=== PATIENT | male | born 1945 | race Caucasian/White ===

== ENCOUNTER 2019-03-26 04:40 | Emergency (ER) | payer OTHER ==
[~2019-03-26] VITALS: Ht 180.3 cm; Wt 63.5 kg
[2019-03-26] MEDS ORDERED: ELIQUIS5 MG PO (05:09)
[2019-03-26] MEDS ORDERED: PROZAC20 M1 PO (05:11)
[2019-03-26] MEDS ORDERED: CRESTOR20 MG PO (05:12)
[2019-03-26] MEDS ORDERED: VITAMIN D5000 UNIT PO (05:13)
[2019-03-26] MEDS ORDERED: TOPROL XL25 MG PO (05:19)
[2019-03-26 05:26] LABS: HEMATOCRIT 33.8 % (42.0-52.0); HEMOGLOBIN 10.7 gm/dL (14.0-18.0); MCH 28.7 pg (26.0-34.0); MCHC 31.6 g/dL (28.0-37.0); MCV 90.7 fL (80.0-100.0); PLATELET COUNT 209 thou/uL (150-400); RBC 3.73 mil/uL (4.50-6.00); RDW 16.7 % (10.5-14.5); WBC 3.7 thou/uL (4.0-11.0)
[2019-03-26 05:35] LABS: ANION GAP 7 mmol/L (7-16); BUN 23 mg/dL (7-18); CHLORIDE 107 mmol/L (98-107); CO2 29 mmol/L (21-32); CREATININE 1.3 mg/dL (0.7-1.3); GLUCOSE 105 mg/dL (74-106); POTASSIUM 4.3 mmol/L (3.5-5.1); SODIUM 143 mmol/L (136-145)
[2019-03-26 05:44] LABS: TROPONIN-I <0.06 ng/mL (<0.06)
[2019-03-26 08:41] LABS: PLATELET ESTIMATE NORMAL
--- NOTE | 2019-03-26 09:02 | EKG ---
[place] [address] [facility] [place] [place] [address] ELECTROCARDIOGRAM REPORT Name: SHAYNACHRISTIANOMINNIEHANY L Room #: [facility]#: [id number] Admission: 03/26/19 Attend Phys: Discharge: Date of : 47 Report #: [id number] THIS REPORT FOR: //name// [facility] ED Test Date: 2019-03-26 Test Time: 04:45:18 Pat Name: HANY RECINOS Department: Room: Gender: M Intake Nurse: SARAH : 1945 Requested By: Juan A Carrillo Order Number: [id number] MD: Ethan Hillman Measurements Intervals [place] Rate: 112 P: [place]: QRS: 80 QRSD: 79 T: 59 QT: 384 QTc: 525 Interpretive Statements Atrial flutter Anteroseptal infarct, old Borderline ST depression, diffuse leads Prolonged QT interval No previous ECG available for comparison Electronically Signed On 03-26-2019 9:02:49 CDT by Ethan Hillman [email or web address] <ELECTRONICALLY SIGNED> By: Ethan Hillman MD, [facility] 03/26/19 0902 0445 0445 Ethan Hillman MD, FACC /EPI
[2019-03-26] MEDS ORDERED: CARDIZEM CD120 MG PO ×2 (09:16→09:40)
[2019-03-26 09:44] VITALS: BP 124/85
== END 2019-03-26 09:49 | disposition home or self-care (01) ==
LOC: ER 04:40
PROVIDERS: Emergency Medicine
DX: I48.20 Chronic atrial fibrillation, unspecified (principal); R06.01 Orthopnea; R06.09 Other forms of dyspnea; R00.0 Tachycardia, unspecified; Z95.0 Presence of cardiac pacemaker; Z87.891 Personal history of nicotine dependence

== ENCOUNTER → 2019-05-02 | Outpatient (CLI) | payer OTHER ==
[~2019-05-02] MED LIST: CARDIZEM CD120 MG PO; CRESTOR20 MG PO; ELIQUIS5 MG PO; PROZAC20 M1 PO; TOPROL XL25 MG PO; VITAMIN D5000 UNIT PO
== END ==
LOC: NUC 08:38
DX: I42.9 Cardiomyopathy, unspecified (principal); E78.5 Hyperlipidemia, unspecified; I10 Essential (primary) hypertension; I48.91 Unspecified atrial fibrillation; Z87.891 Personal history of nicotine dependence; Z95.0 Presence of cardiac pacemaker; Z79.899 Other long term (current) drug therapy

== ENCOUNTER → 2019-07-24 | Outpatient (CLI) | payer OTHER | LOC: SJCVC 15:16 | DX: Z45.018 Encounter for adjustment and management of other part of cardiac pacemaker (principal); I48.21 Permanent atrial fibrillation; R94.31 Abnormal electrocardiogram [ECG] [EKG]; I51.7 Cardiomegaly; I25.5 Ischemic cardiomyopathy; I25.10 Atherosclerotic heart disease of native coronary artery without angina pectoris; E03.9 Hypothyroidism, unspecified; Z79.899 Other long term (current) drug therapy; Z87.891 Personal history of nicotine dependence ==

== ENCOUNTER → 2019-10-30 | Outpatient (CLI) | payer OTHER | LOC: SJCVC 08:00 | PROVIDERS: ATTEND Internal Medicine Cardiovascular Disease | DX: Z45.018 Encounter for adjustment and management of other part of cardiac pacemaker (principal); I49.5 Sick sinus syndrome; I48.21 Permanent atrial fibrillation; I42.9 Cardiomyopathy, unspecified; I25.10 Atherosclerotic heart disease of native coronary artery without angina pectoris; Z87.891 Personal history of nicotine dependence; Z79.899 Other long term (current) drug therapy ==

== ENCOUNTER → 2020-02-05 | Outpatient (CLI) | payer OTHER | LOC: SJCVC 15:07 | PROVIDERS: ATTEND Internal Medicine Cardiovascular Disease | DX: Z45.018 Encounter for adjustment and management of other part of cardiac pacemaker (principal); K92.2 Gastrointestinal hemorrhage, unspecified; I48.21 Permanent atrial fibrillation; I42.8 Other cardiomyopathies; D68.69 Other thrombophilia; I25.10 Atherosclerotic heart disease of native coronary artery without angina pectoris; Z79.899 Other long term (current) drug therapy; Z87.891 Personal history of nicotine dependence ==

== ENCOUNTER → 2020-06-25 | Outpatient (CLI) | payer OTHER | LOC: LAB 10:13 | PROVIDERS: ATTEND Internal Medicine Cardiovascular Disease | DX: U07.1 COVID-19 (principal) ==

== ENCOUNTER 2020-06-30 06:31 | Observation (INO) | payer OTHER ==
[~2020-06-30] VITALS: Ht 180.3 cm; Wt 62.6 kg
--- NOTE | ~2020-06-30 | P ---
[facility] [place] [address] PROCEDURE REPORT Name: HANY RECINOS Room #: 212-P [facility] Stephany M.Darrell#: [id number] Admission: 06/30/20 Attend Phys: Paul Chan MD Discharge: Date of : 47 Report #: [id number] THIS REPORT FOR: cc: Nav Andersen MD, William MD Couchonnal,Paul Koo MD ~ DATE OF SERVICE: 06/30/2020 PREOPERATIVE DIAGNOSES: 1. Nonischemic cardiomyopathy. 2. Permanent atrial fibrillation. HISTORY: The patient is 74-year-old with history of prior mitral valve repair in 1998 and multiple AFib ablations, who has failed to maintain sinus rhythm. His most recent echo shows an EF of 35%. He has a nonischemic cardiomyopathy with [place] [employer] functional class 2-3 heart failure symptoms and has been on optimal medical therapy including beta harshil and CECELIA inhibitors. Based on these findings, he meets criteria for ICD implantation. We also make plans for him to undergo an AV node ablation and given his reduced ejection fraction and anticipated 100% ventricular pacing after the AV node ablation, he will need an LV lead to prevent further worsening of his LV function. He is here for Bi-V ICD implantation. ANESTHESIA: The patient underwent MAC anesthesia with no anesthesia related complications. DESCRIPTION OF PROCEDURE: The patient underwent informed consent. We discussed the details of the procedure including the risks, which include but not limited to bleeding, vascular damage, stroke, PR, cardiac perforation, pneumothorax. He understood these risks and is willing to proceed. The patient was brought to EP laboratory in fasting and sedated state and prepped and draped in a sterile fashion. The patient underwent a venogram, which showed that he likely had a narrowing at the subclavian vessel. There was also a concern that there was a narrowing close to the SVC-RA junction. A second venogram demonstrated that was not the case. Therefore, I injected lidocaine at the prior incision site. An incision was made, pocket was entered. I dissected the leads out and made room for the newer device. Next, I attempted to obtain access to left axillary vein. I was able to access the vein easily, but I could not advance a wire past this stenosis noted on the prior venogram. I initially tried with a traditional J wire and then tried a Wholey wire, which were unsuccessful. I then attempted with a Glidewire. After about 15 minutes, I was able to traverse the stenosis and get the Glidewire into the right atrium. I then attempted to obtain access again and this second one was much more challenging. I had to stick the vein several times and one time it [facility] [address] [place] [address] PROCEDURE REPORT Name: HANY RECINOS HUMBERTO Room #: 212-P [facility] Stephany Snider#: [id number] Admission: 06/30/20 Attend Phys: Paul Chan MD Discharge: Date of : 47 Report #: [id number] did appear that I jer back some air, so I had concerns that I would likely cause a pneumo. I obtained access again and then finally I was able to get a second Glidewire to traverse this stenotic tortuosity and we proceeded with the remainder of the case. Next, a RV lead was positioned at the right ventricular mid septum with adequate pacing and sensing thresholds. This lead was sutured to the prepectoral fascia. Then, I placed a coronary guide sheath into the right atrium and I was able to get into the coronary sinus. I performed a formal venogram using a balloon and he essentially had no good targets. There was a very small anterolateral branch. There was a very small middle cardiac vein and there were no posterior lateral branches. I therefore was able to get a wire into this anterolateral branch and then was able to get the proximal 2 electrodes on the lead within this vessel, but I was probably only third of the way in the vessel whereas the wire was much, much further, but this was a very small vessel. Fortunately, there was adequate pacing and sensing thresholds. Therefore, the lead was left at this position. The sheaths were split. The lead remained in place and then the leads were sutured to the prepectoral fascia. The patient did have a high PA pressures and therefore, I had a lot of bleeding at the subclavian site, despite holding pressure for 15 minutes. Therefore, I performed a [id number]-tk-[id number] suture around the leads over the suture sleeves to ensure not damaging the actual leads. This did result in hemostasis. He did have significant muscle bleeding and I did inject some D-STAT into the pocket. Next, the pocket had already been irrigated with vancomycin, I connected the leads to the device and the old right ventricular lead was disconnected and capped and placed in the pocket. The pocket was then closed in 2 layers using 2-0 for the deep layer, 3-0 for the middle layer and surgical glue was placed to the outer skin layer. The patient awoke neurologically and hemodynamically intact. No complications and no significant bleeding and a pressure dressing was utilized due to his more than usual bleeding. The explanted pacemaker was a Medtronic model, A2DR01, serial #[id number]. The newly implanted device was a [employer], model #SWYG0BD, serial #[id number]. Atrial lead was a 5076, 45 cm, serial #[id number]. The capped RV lead was a 5076, 58 cm, serial #[id number], implanted back on 01/09/2016 and this was a capped lead. The newly implanted ICD lead was a 6935, 62 cm, serial #[id number], and the LV lead was a Medtronic 4298, serial #[id number]. Atrial lead demonstrated atrial fib impedance of 399 ohms. The RV lead demonstrated R waves of 8.7, pacing impedance 651 ohms, pacing threshold 0.4 volts at 0.5 milliseconds. The LV lead was programmed in the LV1-LV2 pacing configuration with a pacing impedance of 712 ohms and a pacing threshold of 0.8 volts at 0.5 milliseconds. The device was programmed to the VVIR 70-130 mode. The VT zone was set at 200-240 beats per minute with 3 rounds of burst followed by 3 rounds of ramp followed by max output shocks. VF zone was set at greater than 240 beats per minute with ATP while charging followed by max output shocks. CONCLUSIONS: 1. Successful upgrade to a biventricular ICD. [facility] [address] [place] [address] PROCEDURE REPORT Name: HANY RECINOS HUMBERTO Room #: 212-P [facility] Stephany Snider#: [id number] Admission: 06/30/20 Attend Phys: Paul Chan MD Discharge: Date of : 47 Report #: [id number] 2. Satisfactory right ventricular and left ventricular pacing and sensing thresholds. PLAN: Anticipated discharge tomorrow with plans to perform AV node ablation in the near future. By: 1415 1649 Paul Chan MD /nt
[2020-06-30 07:25] VITALS: BP 105/72
[2020-06-30 07:36] LABS: ABSOLUTE NEUTROPHILS 2.1 thou/uL (1.4-8.2); BASOPHILS 0.5 % (0.0-2.0); EOSINOPHILS 5.2 % (0.0-3.0); HEMATOCRIT 39.2 % (42.0-52.0); HEMOGLOBIN 12.4 gm/dL (14.0-18.0); LYMPHOCYTES 26.2 % (24.0-44.0); MCHC 31.6 g/dL (28.0-37.0); MCV 98.3 fL (80.0-100.0); PLATELET COUNT 163 thou/uL (150-400); POLYS 55.1 % (36.0-66.0); RBC 3.99 mil/uL (4.50-6.00); WBC 3.8 thou/uL (4.0-11.0)
[2020-06-30 07:46] LABS: ALBUMIN 3.6 g/dL (3.4-5.0); APTT 26.1 Seconds (24.5-32.8); CALCIUM 9.3 mg/dL (8.5-10.1); CREATININE 1.1 mg/dL (0.7-1.3); INR 1.1; POTASSIUM 4.2 mmol/L (3.5-5.1); TOTAL BILIRUBIN 0.9 mg/dL (0.2-1.0); TOTAL PROTEIN 6.8 g/dL (6.4-8.2)
[2020-06-30] MEDS ORDERED: IRON18 M1 PO (08:30)
[2020-06-30] MEDS ORDERED: TOPROL XL50 MG PO (08:32)
[2020-06-30] MEDS ORDERED: LISINOPRIL2.5 MG PO (08:33)
[2020-06-30] MEDS ORDERED: PROTONIX40 M2 PO (08:34)
[2020-06-30] MEDS ORDERED: TRAZODONE HCL100 MG PO (08:50)
[2020-06-30] MEDS ORDERED: ROSUVASTATIN CA20 MG PO (08:53)
[2020-06-30] MEDS ORDERED: LANOXIN125 MCG PO (08:56)
--- NOTE | 2020-06-30 13:37 | NUR ---
PT L CHEST DRESSING C/D/I. VSS. NO COMPLAINTS.
[2020-06-30 15:00] VITALS: BP 112/82
[2020-06-30 16:00] VITALS: BP 119/79
[2020-06-30 17:00] VITALS: BP 111/80
[2020-06-30 18:00] VITALS: BP 114/71
--- NOTE | 2020-06-30 18:18 | NUR ---
PT CAME FROM [facility] WITH PRESSURE DRESSING ON LEFT SHOULDER, PNEUMOTHORAX STABLE, PT ON BEDREST, IMMOBILIZER ON, BEDREST REVIEWED WITH PT, HE VERBALIZED UNDERSTANDING, UPDATED ON POC,
[2020-06-30 20:24] VITALS: BP 122/64
[2020-07-01 01:45] VITALS: BP 108/81
[2020-07-01 03:48] VITALS: BP 107/77
--- NOTE | 2020-07-01 04:08 | NUR ---
Assumed pt care at 1900. Pt is alert and oriented. No sign of distress noted in pt. Pt is stable and laying in bed, with arm immobilizer in place. Fall precaution in place. Assessment completed and documented. Pt verbalized pain at incision site. Pain med administered upon request. No acute events overnight. Continue to monitor. No further needs at this time.
[2020-07-01 08:05] VITALS: BP 116/78
[2020-07-01 11:12] VITALS: BP 101/60
[2020-07-01 12:33] VITALS: BP 101/60
--- NOTE | 2020-07-01 13:53 | NUR ---
ASSESSMENT CHARTED - MEDS PER AUG - NO CO'S OF NAUSEA - FELICITAS DIET AND FLUIDS. GIVEN HYDROCODONE FOR CO'S OF PAIN IN LEFT CHEST WITH GOOD RELIEF. INCISION C/D/I. PT UP AD REX IN ROOM - HOME THIS AFTERNOON - INSTRUCTION RE HOME MEDS/ CARE AND FOLLOW UP GIVEN -S TATED UNDERSTADNING. HOME ACCOMPANIED [place] NO CO'S AT TIME OF D/C.
== END 2020-07-01 14:01 | disposition home or self-care (01) ==
LOC: CATH 06:31 → 2N 14:08 → CATH 14:44 → 2N 07-01 14:01
PROVIDERS: ADMIT Internal Medicine Cardiovascular Disease; ATTEND Internal Medicine Cardiovascular Disease
DX: I42.8 Other cardiomyopathies (principal); I48.21 Permanent atrial fibrillation; I11.0 Hypertensive heart disease with heart failure; I50.22 Chronic systolic (congestive) heart failure; I34.1 Nonrheumatic mitral (valve) prolapse; Z79.82 Long term (current) use of aspirin; Z79.899 Other long term (current) drug therapy

== ENCOUNTER → 2020-07-04 | Outpatient (CLI) | payer OTHER ==
[~2020-07-04] MED LIST changes: +IRON18 M1 PO; +LANOXIN125 MCG PO; +LISINOPRIL2.5 MG PO; +PROTONIX40 M2 PO; +ROSUVASTATIN CA20 MG PO; +TOPROL XL50 MG PO; +TRAZODONE HCL100 MG PO
== END ==
LOC: RAD 10:30
PROVIDERS: ATTEND Internal Medicine Cardiovascular Disease
DX: J98.4 Other disorders of lung (principal); J95.811 Postprocedural pneumothorax

== ENCOUNTER → 2020-07-09 | Outpatient (CLI) | payer OTHER | LOC: RAD 11:07 | PROVIDERS: ATTEND Internal Medicine Cardiovascular Disease | DX: J95.811 Postprocedural pneumothorax (principal); I70.0 Atherosclerosis of aorta ==

== ENCOUNTER → 2020-07-09 | Outpatient (CLI) | payer OTHER | LOC: SJCVC 13:22 | PROVIDERS: ATTEND Internal Medicine Cardiovascular Disease | DX: I48.91 Unspecified atrial fibrillation (principal); I49.5 Sick sinus syndrome; I42.0 Dilated cardiomyopathy; I42.8 Other cardiomyopathies; Z95.810 Presence of automatic (implantable) cardiac defibrillator; Z79.899 Other long term (current) drug therapy; Z87.891 Personal history of nicotine dependence ==

== ENCOUNTER → 2020-07-14 | Outpatient (CLI) | payer OTHER ==
[~2020-07-14] VITALS: Ht 180.3 cm; Wt 62.2 kg
--- NOTE | ~2020-07-14 | P ---
[facility] [place] [address] PROCEDURE REPORT Name: HANY RECINSO Room #: REG ALAINA DaleyAmanda#: [id number] Admission: 07/14/20 Attend Phys: Paul Chan MD Discharge: Date of : 47 Report #: [id number] THIS REPORT FOR: cc: Nav Andersen MD, William MD Couchonnal,Paul Koo MD ~ PREOPERATIVE DIAGNOSIS: Atrial fibrillation. POSTOPERATIVE DIAGNOSIS: Atrial fibrillation. PROCEDURES PERFORMED: 1. AV node ablation, CPT code 81176. 2. ICD programming. Preprocedure CPT code 44163. 3. Post-procedure ICD reprogramming. CPT code 22331. HISTORY: The patient is status post recent placement of BiV ICD, has permanent atrial fibrillation and Afib with rapid ventricular response. He is here for AV node ablation. ANESTHESIA: The patient underwent MAC anesthesia with no anesthesia related complications. DESCRIPTION OF PROCEDURE: The patient underwent informed consent. We discussed the details of the procedure including the risks which include but are not limited to bleeding, infection, cardiac perforation, stroke and OR. He understood these risks and is willing to proceed. DESCRIPTION OF PROCEDURE: The patient was brought to the EP laboratory in a fasting nonsedated state, prepped and draped in a sterile fashion. I obtained access to the right femoral vein and placed a SR0 sheath into the right atrium and then an 8 mm ablation catheter into the right atrium. Next, prior to obtaining access, I did reprogram his ICD, turned off VT therapies and programmed his lower rate to 40. Next, ablation was performed at 70 bernal and 60 degrees. I did find an initial right bundle branch potential, started ablating here, gave the patient right bundle, continued pulling back and did not get any heart block. I performed ablation lower from the spot and again no significant slowing. Eventually, I went quite low, almost to the coronary sinus ostium, at the level of my LV lead. I performed ablation here and within about 5 seconds, there was complete heart block. We monitored the patient for a period of 20 minutes and there was no return of conduction. His ICD was re-interrogated and found to be functioning normally and his device was programmed to VVIR 80 beats per minute with VT and VF therapies re-enabled. There were no procedure related complications. The patient awoke neurologically and hemodynamically intact. CONCLUSIONS: [facility] [address] [address] PROCEDURE REPORT Name: HANY RECINOS Room #: REG ALAINA Snider#: [id number] Admission: 07/14/20 Attend Phys: Paul Chan MD Discharge: Date of : 47 Report #: [id number] 1. Successful AV node ablation. 2. Successful pre and post-procedure ICD reprogramming. By: 1325 20 Paul Chan MD /nt
[2020-07-14 10:25] VITALS: BP 98/65
[2020-07-14 10:47] LABS: BASOPHILS 3.5 % (0.0-2.0); EOSINOPHILS 8.2 % (0.0-3.0); HEMATOCRIT 43.4 % (42.0-52.0); HEMOGLOBIN 13.7 gm/dL (14.0-18.0); LYMPHOCYTES 20.5 % (24.0-44.0); MCH 30.9 pg (26.0-34.0); MCHC 31.5 g/dL (28.0-37.0); MCV 98.2 fL (80.0-100.0); MONOCYTES 12.2 % (1.0-8.0); PLATELET COUNT 171 thou/uL (150-400); POLYS 55.6 % (36.0-66.0); RBC 4.42 mil/uL (4.50-6.00); RDW 15.6 % (10.5-14.5); WBC 5.3 thou/uL (4.0-11.0)
[2020-07-14 10:57] LABS: CALCIUM 9.4 mg/dL (8.5-10.1); CREATININE 1.4 mg/dL (0.7-1.3); POTASSIUM 4.6 mmol/L (3.5-5.1)
[2020-07-14 11:00] LABS: APTT 26.7 Seconds (24.5-32.8); INR 1.1
[2020-07-14 11:03] LABS: ALBUMIN 3.8 g/dL (3.4-5.0); TOTAL BILIRUBIN 0.8 mg/dL (0.2-1.0); TOTAL PROTEIN 7.3 g/dL (6.4-8.2)
== END | disposition home or self-care (01) ==
LOC: CATH 09:36
PROVIDERS: ATTEND Internal Medicine Cardiovascular Disease
DX: I48.21 Permanent atrial fibrillation (principal); I42.0 Dilated cardiomyopathy; I25.10 Atherosclerotic heart disease of native coronary artery without angina pectoris; G47.33 Obstructive sleep apnea (adult) (pediatric); Z95.0 Presence of cardiac pacemaker; Z86.73 Personal history of transient ischemic attack (TIA), and cerebral infarction without residual deficits; Z98.890 Other specified postprocedural states; Z79.899 Other long term (current) drug therapy; Z79.01 Long term (current) use of anticoagulants
CPT/HCPCS: 62110; 62900; 70005

== ENCOUNTER → 2020-10-15 | Outpatient (CLI) | payer OTHER | LOC: LAB 14:08 | PROVIDERS: ATTEND Internal Medicine Cardiovascular Disease | DX: Z01.812 Encounter for preprocedural laboratory examination (principal); Z20.822 Contact with and (suspected) exposure to COVID-19 ==

== ENCOUNTER 2020-10-20 09:04 | Observation (INO) | payer OTHER ==
[~2020-10-20] VITALS: Ht 180.3 cm; Wt 63.5 kg
[2020-10-20 10:17] VITALS: BP 103/69
[2020-10-20 10:19] LABS: ABSOLUTE NEUTROPHILS 2.1 thou/uL (1.4-8.2); BASOPHILS 2.6 % (0.0-2.0); EOSINOPHILS 5.3 % (0.0-3.0); HEMATOCRIT 29.9 % (42.0-52.0); HEMOGLOBIN 9.4 gm/dL (14.0-18.0); LYMPHOCYTES 20.4 % (24.0-44.0); MCH 28.5 pg (26.0-34.0); MCHC 31.5 g/dL (28.0-37.0); MCV 90.5 fL (80.0-100.0); PLATELET COUNT 179 thou/uL (150-400); POLYS 56.7 % (36.0-66.0); RDW 16.1 % (10.5-14.5); WBC 3.7 thou/uL (4.0-11.0)
[2020-10-20 10:30] LABS: CALCIUM 9.2 mg/dL (8.5-10.1); CREATININE 1.1 mg/dL (0.7-1.3); POTASSIUM 4.5 mmol/L (3.5-5.1)
[2020-10-20 10:41] LABS: INR 1.14; PROTIME 12.3 Seconds (10.5-12.1)
--- NOTE | 2020-10-20 16:31 | NUR ---
PT ARRIVED FROM [facility] AT 1607. PT ON BEDREST UNITL 2207 TONIGHT. PT ADMISSION DETAILS WERE COMPLETED BY NOELLE Vargas RN. PT STATES PAIN ONLY WITH PALPATION OF GROIN SITE. RIGHT GROIN SITE IS CLEAN DRY AND INTACT WITH NO HEMATOMA PRESENT. VSS. WILL CONTINUE TO MONITOR AND FOLLOW POC.
--- NOTE | 2020-10-20 16:43 | NUR ---
PT STATES HE WOULD LIKE HIS RX TO BE SENT TO [facility]
--- NOTE | 2020-10-20 18:52 | NUR ---
pt called RN into room, pt c/o of not having a meal tray. pt has had a diet order in. dietary did not deliver patient a tray. incident report filed. pt also c/o of bed rest orders. pt states this is torture and would rather bleed out than lay in bed. pt re educated on the reason why bedrest exist and what could happen if he would to get up before bedrest time is finished. pt states he has mild groin pain. pt educated on cath procedure again and that some soreness from the groin site is normal. pt still remains dissatisfied. dianne nunez director notified.
[2020-10-20 20:15] VITALS: BP 114/82
[2020-10-21 00:05] VITALS: BP 111/75
[2020-10-21 04:45] VITALS: BP 109/77
--- NOTE | 2020-10-21 04:55 | NUR ---
ASSESSMENTS CHARTED, MEDS CHARTED GIVEN. PATIENT VERY UPSET AND DISGRUNTLED AT START OF SHIFT. WAS NOT HAPPY TO BE ON BEDREST AND UNABLE TO STAND TO URINATE, AND ONLY GET A BOX LUNCH FOR DINNER. I SPOKE WITH HIS AND EXPLAINED WHAT HAD HAPPENED DURING THE DAY, AND OUR PROCEDURES THAT WE HAVE TO FOLLOW FOR PATIENT CARE. PATIENT'S THEN SPOKE TO THE PATIENT AND TOLD HIM TO BEHAVE. PATIENT APOLOGIED TO EVERYONE.
--- NOTE | 2020-10-21 08:00 | P ---
[facility] [place] [address] PROCEDURE REPORT Name: HANY RECINOS Room #: 212-P [facility] Stephany Snider#: [id number] Admission: 10/20/20 Attend Phys: Paul Chan MD Discharge: Date of : 47 Report #: [id number] THIS REPORT FOR: cc: Nav Andersen MD, William MD Couchonnal,Paul Koo MD ~ DOC #: [id number] Paul Chan MD DATE OF SERVICE: 10/20/2020 INDICATIONS: The patient is a 74-year-old with a history of permanent atrial fibrillation status post prior BiV ICD ablation and AV node ablation. He was recently seen in clinic and was noted to have return of conduction. His initial AV node ablation was quite challenging. I took extensive ablation to achieve heart block at that time. He is here for repeat ablation. PROCEDURE PERFORMED: 1. AV node arterial line placement, CPT code 04980. 2. AV node ablation -- CPT code 98328. 3. Preprocedural ICD reprogramming. CPT code 93409. 4. Post-procedural ICD reprogramming. CPT code 30931. DESCRIPTION OF PROCEDURE: The patient underwent informed consent. He was prepped and draped in a standard fashion. His defibrillator was programmed to the VVI 40 mode and his ICD therapies were disabled. I obtained access to the right femoral vein x 1, placing an SR0 sheath into the right atrium and a SmartTouch Thermo[employer] ablation catheter in the right atrium. I attempted several ablation lesions, none of which resulted in heart block. Given my extensive ablation last time, I decided to move quickly to left-sided ablation. Therefore, arterial access was obtained in the right femoral artery, initially had some difficulty advancing the ablation catheter up via the right common iliac artery as it was somewhat tortuous. I performed a contrast injection, which allowed me to follow this image. I did place a longer sheath, so I would not have to transverse this area again. The ablation catheter was then taken into the left ventricle and I looked along the septal aspect of the left ventricle and with manipulation of my catheter in this site, the patient would clearly develop heart block. Therefore, I did not see a nice history here, but I performed ablation here, which did result in heart block, but there was some conduction at around 35 beats per minute. Therefore, I went back in and again, there was an area with catheter manipulation, I would see heart block and therefore, I performed ablation along this site. This was just below the aortic valve at a very subtle location. After this ablation lesion, there was no more conduction and his conduction was monitored for a period of time and therefore the procedure was concluded. The patient received systemic protamine after he has been heparinized for the retroaortic access. Catheters and sheaths were pulled. His defibrillator was re-interrogated and found to be functioning [address] [address] PROCEDURE REPORT Name: HANY RECINOS Otoniel Room #: 212-P [facility] Stephany Snider#: [id number] Admission: 10/20/20 Attend Phys: Paul Chan MD Discharge: Date of : 47 Report #: [id number] normally. His therapies were re-enabled and his pacing was programmed back to its original settings. CONCLUSION: 1. Successful AV node ablation requiring retroaortic access. 2. Successful pre- and post-procedural ICD reprogramming. MD JOSELITO Camp/CARLINE <ELECTRONICALLY SIGNED> By: Paul Chan MD 10/21/20 0800 1430 0057 Paul Chan MD /nt
--- NOTE | 2020-10-21 09:45 | NUR ---
ASSUMED PT CARE AT 0700. PT SITTING UP IN THE CHAIR READY TO BE D/C. PT EDUCATED ON WHEN THE UNIT ATTEMPTES TO D/C PATIENTS. WAITING FOR OFFICIAL D/C ORDERS THEN PAT WILL BE GOING HOME WITH .
[2020-10-21 11:41] VITALS: BP 109/776
== END 2020-10-21 12:00 | disposition home or self-care (01) ==
LOC: CATH 09:04 → 2N 16:22
PROVIDERS: ADMIT Internal Medicine Cardiovascular Disease; ATTEND Internal Medicine Cardiovascular Disease
DX: I48.21 Permanent atrial fibrillation (principal); G47.33 Obstructive sleep apnea (adult) (pediatric); I49.5 Sick sinus syndrome; R55 Syncope and collapse; I25.10 Atherosclerotic heart disease of native coronary artery without angina pectoris; E03.9 Hypothyroidism, unspecified; Z79.899 Other long term (current) drug therapy
CPT/HCPCS: 62110; 62900; 70005

== ENCOUNTER → 2021-05-20 | Outpatient (CLI) | payer OTHER | LOC: SJCVC 13:39 | PROVIDERS: ATTEND Internal Medicine Cardiovascular Disease | DX: R94.31 Abnormal electrocardiogram [ECG] [EKG] (principal); I45.4 Nonspecific intraventricular block; I48.91 Unspecified atrial fibrillation; I25.10 Atherosclerotic heart disease of native coronary artery without angina pectoris; E03.9 Hypothyroidism, unspecified; Z86.16 Personal history of COVID-19; Z95.0 Presence of cardiac pacemaker; Z79.899 Other long term (current) drug therapy; Z87.891 Personal history of nicotine dependence ==